=== PATIENT | female | born 1980 | race American Indian/Alaskan Native ===

== ENCOUNTER 2018-03-22 06:16 | Day surgery (SDC) | payer OTHER ==
[~2018-03-22 06:16] MED LIST: LACTATED RINGERS 1,000 ML IV SCH; NACL BACTERIOSTATIC INFILTRATI ONE
[2018-03-22] MEDS ORDERED: XYLOCAINE 1% 20 mL ONE (06:24)
[2018-03-22] MEDS ORDERED: XYLOCAINE 1%/ EPI 1:100,000 INFILTRATI ONE ×2 (06:25→09:07)
[2018-03-22] MEDS ORDERED: NACL 0.9% 1000 ML 4,000 ML ONE (06:25)
[2018-03-22] MEDS ORDERED: VERSED IV NR (07:00)
[2018-03-22] MEDS ORDERED: ANCEF/STERILE WATER 2 GM/20 ML IV NR (07:00)
[2018-03-22] MEDS ORDERED: NEURONTIN PO NR (07:00)
[2018-03-22] MEDS ORDERED: LOVENOX SUB-Q NR (07:00)
[2018-03-22] MEDS ORDERED: SUBLIMAZE ONE (07:09)
[2018-03-22] MEDS ORDERED: DIPRIVAN 10 MG/ML IV ONE (07:10)
[2018-03-22] MEDS ORDERED: DECADRON ONE (07:11)
[2018-03-22] MEDS ORDERED: XYLOCAINE MPF 2% ONE (07:11)
[2018-03-22] MEDS ORDERED: ZEMURON IV ONE ×2 (07:11→09:20)
[2018-03-22] MEDS ORDERED: ZOFRAN ONE (07:11)
[2018-03-22] MEDS ORDERED: ADRENALINE P/F ONE (07:17)
[2018-03-22] MEDS ORDERED: DILAUDID ONE ×2 (08:04→10:23)
[2018-03-22] MEDS ORDERED: ADRENALIN IV ONE (09:00)
[2018-03-22] MEDS ORDERED: XYLOCAINE 1% 20 mL INFILTRATI ONE (09:03)
[2018-03-22] MEDS ORDERED: NACL 0.9% 1000 ML IR ONE (09:05)
--- NOTE | 2018-03-22 09:06 | Anesthesia Consultation ---
Anesthesia Consult and Med Hx Date of service: 03/22/18 - Airway Anesthetic Teeth Evaluation: Good ROM Head & Neck: Adequate Mental/Hyoid Distance: Adequate Mallampati Class: Class II Intubation Access Assessment: Probably Good - Pulmonary Exam CTA: Yes - Cardiac Exam Cardiac Exam: RRR - Pre-Operative Health Status ASA Pre-Surgery Classification: ASA1 Proposed Anesthetic Plan: General - Pulmonary Hx Smoking: No Hx Asthma: No Hx Respiratory Symptoms: No (no recent cough or flu-like symptoms) Hx Sleep Apnea: No (MICHAEL PRE SCREEN LOW RISK) - Cardiovascular System Hx Hypertension: No Hx Heart Attack/AMI: No - Central Nervous System Hx Seizures: No CVA: No - Gastrointestinal Hx Gastroesophageal Reflux Disease: No - Endocrine Hx Renal Disease: No Hx Liver Disease: No Hx Insulin Dependent Diabetes: No Hx Non-Insulin Dependent Diabetes: No Hx Thyroid Disease: No - Other Systems Hx Obesity: Yes - Additional Comments Anesthesia Medical History Comments: No hx anesthetic complications.
[2018-03-22] MEDS ORDERED: DILAUDID IV PRN (09:07)
[2018-03-22] MEDS ORDERED: NACL 0.9% IR ONE (09:07)
--- NOTE | 2018-03-22 09:07 | Anesthesia Day of Surgery ---
Anesthesia Day of Surgery - Day of Surgery Patient Examined: Yes Patient H&P Reviewed: Yes Patient is NPO: Yes
[2018-03-22] MEDS ORDERED: NACL 0.9% 100 ML ONE (11:23)
[2018-03-22] MEDS ORDERED: NEO SYNEPHRINE ONE (11:23)
--- NOTE | 2018-03-22 14:31 | Operative Report ---
Operative Report Operative Report: Plastic Surgery Operative Note Preoperative Diagnosis: Unacceptable Cosmetic appearance Postoperative Diagnosis: Same Procedure: Full lipoabdominoplasty with liposuction of the upper and lower abdomen, anterior waistline. Anesthesia: General endotracheal Surgeon: Myra Shipley MD Electro Mechanic: Maine Arredondo CFA EBL: 200 cc Indications: This patient is a 38 year old AAF who presented with complaint of abdominal pannus, adiposity of the central abdomen and "muffin top" that she has had for years and not been able to lose despite diet and exercise. She desires a flat midsection and waistline definition. We discussed the benefits as well as the risks of lipoabdominoplasty, including but not limited to hematoma, seroma, infection, bleeding, scarring, keloids, pulmonary embolus and the need for further surgery. The patient understood and accepted these risks and decided to move forward with surgery. Informed consent was obtained. Procedure: After review of pertinent history and physical exam findings the patient was brought into the operating room and placed supine on the OR table. After induction of adequate general endotracheal anesthesia, the abdomen was prepped and draped in the usual sterile surgical fashion. Using an 11 blade, cannula entry incisions were made in the lower abdomen, and 4 L of tumescent solution was infiltrated into the tissues of the abdomen and flanks. Power assisted liposcution was performed until aspirate was blood-tinged, for a total of 7.4 L, 4.75 L of which was pure fat. We then began the tummy tuck portion of the procedure, creating a lower abdominal incision using a 10 blade, which was carried through subcutaneous tissue using the electrocautery. This dissection along the rectus fascia was carried cephalad to the xiphoid process, after which point rectus diastasis (measuring 4 cm at its widest) was repaired using 0 PDO Quill suture. The bed was then placed in a beach chair position and the lower abdominal pannus was marked and sharply excised. A 19 Fr Jin drain was placed and secured with a 2-0 Nylon suture and we began closure of her incisions in 3 layers beginning with a PDO Quill suture to approximate Tea's fascia follwed by skin closure with 3-0 Monoderm Quill in 2 layers. The umbilicus was delivered through the abdominal skin flap and secured with 2-0 Monocryl and 3-0 subcuticular sutures. All incisions were then sealed with Dermabond. ABD's were then secured over the incisions with paper tape. Patient was then awakened from general anesthesia and transferred to PACU in stable condition. There were no complications. All sponge, needle and instrument counts were correct at the end of the case.
[2018-03-22] MEDS ORDERED: ROBAXIN PO STA (14:34)
--- NOTE | 2018-03-22 15:45 | Post Anesthesia Evaluation ---
- Post Anesthesia Evaluation Patient Participated: Yes Airway Patent: Yes Stable Respiratory Function: Yes Nausea/Vomiting: No Temp > 96.8F: Yes Pain Manageable: Yes Adequeate Hydration: Yes Anesthesia Complications: No
[2018-03-22 20:42] VITALS: BP 140/78
== END 2018-03-22 17:10 | disposition home or self-care (01) ==
LOC: OR 06:16
PROVIDERS: ATTEND Plastic Surgery
DX: Z41.1 Encounter for cosmetic surgery (principal); G43.909 Migraine, unspecified, not intractable, without status migrainosus; Z79.899 Other long term (current) drug therapy; Z98.890 Other specified postprocedural states
CPT/HCPCS: 15877; 81025; J0171; J0690; J1100; J1170; J1650; J2250; J2370; J2405; J2704; J3010; J7030; J7120